=== PATIENT | male | born 1950 | race Caucasian/White ===

== ENCOUNTER 2016-12-23 22:43 | Emergency (ER) | payer OTHER, BC ==
[2016-12-23 22:55] VITALS: BP 103/60; PULSE 66; TEMP 98.8; BMI 29.8
--- NOTE | 2016-12-24 00:19 | PDOC ---
History of Present Illness - General Chief Complaint: Injury Stated Complaint: INJURY SATURDAY/SWELLING REDNESS TO ARM Time Seen by Provider: 12/23/16 22:49 - History of Present Illness Initial Comments: This 66-year-old man with a history of Asperger syndrome, hypertension, diabetes mellitus, anxiety/depression presents in the company of his sister with a history of falling at [place] [employer] 3 days ago. They were traveling from [place] here when he fell down an escalator. Patient sustained lacerations of the right forearm and fingers. [facility] and laceration of the forearm was sutured and finger injuries were dressed. Dressings are being changed by patient's sister and [id number]. Tonight, right forearm wound was examined by family friend (who is an RN) who became concerned that the area was inflamed, consistent with a soft tissue infection area patient states that the areas somewhat more painful than it was a few days ago. There is no history of fever/chills. No history of previous cellulitis/abscess; no history of MRSA or other resistant organisms colonization/infection Past History - Past Medical History Allergies/Adverse Reactions: Allergies Allergy/AdvReac Type Severity Reaction Status Date / Time No Known Allergies Allergy Verified 12/23/16 22:45 Home Medications: Ambulatory Orders Alprazolam [Xanax] 0.5 mg PO TID 12/24/16 Amiodarone HCl 200 mg PO DAILY 12/24/16 Apixaban [Eliquis] 5 mg PO BID 12/24/16 Atorvastatin Ca [Lipitor] 40 mg PO HS 12/24/16 Bupropion HCl [Bupropion Xl] 400 mg PO DAILY 12/24/16 Canagliflozin [Invokana] 300 mg PO DAILY 12/24/16 Clindamycin HCl 300 mg PO TID #20 capsule 12/24/16 Lansoprazole [Prevacid -] 15 mg PO DAILY 12/24/16 Metformin HCl [Glucophage] 500 mg PO BID 12/24/16 Metoprolol Succinate [Toprol Xl -] 25 mg PO BID 12/24/16 Quetiapine Fumarate [Seroquel] 50 tab PO HS 12/24/16 Tamsulosin HCl 0.4 mg PO HS 12/24/16 Venlafaxine HCl ER [Effexor Xr -] 300 mg PO DAILY 12/24/16 Diabetes: Yes Disorders: Yes (URINARY INCONTINENCE) HTN: Yes Other medical history: ANXIETY/DEPRESSION - Psycho/Social/Smoking Cessation Hx Anxiety: Yes Suicidal Ideation: No Smoking History: Never smoked Have you smoked in the past 12 months: No Information on smoking cessation initiated: No Hx Alcohol Use: No Drug/Substance Use Hx: No Substance Use Type: None Review of Systems - Review of Systems Able to Perform ROS?: Yes Comments:: 12 point review of systems is negative except for what is noted in the history of present illness *Physical Exam - Vital Signs Last Vital Signs Temp Pulse Resp BP Pulse Ox 98.8 F 66 16 103/60 97 12/23/16 22:47 12/23/16 22:47 12/23/16 22:47 12/23/16 22:47 12/23/16 22:47 - Physical Exam Comments: GENERAL:Adult male, alert and oriented 3, no acute distress Vital signs as noted HEAD: Normal with no signs of trauma. EXTREMITIES: Right upper extremityforearm: 4 cm laceration with intact suture closing. No purulent or other discharge noted No fluctuant area noted in proximity to laceration Distal 2 cm of the area distal to the laceration is erythematous, mildly edematous edematous/ tender NEUROLOGICAL: Cranial nerves II through XII grossly intact. Normal speech. No focal neurological deficits. MUSCULOSKELETAL: Back non-tender to palpation, no CVA tenderness SKIN: Warm, Dry, normal turgor, no rashes or lesions noted. Medical Decision Making - Medical Decision Making This 66-year-old man with a history of diabetes mellitus presents with sutured wound of the right forearm, sustained 3 days ago when he fell down an escalator , while in [place] [facility] prior to traveling here to attend his father's . Patient was evaluated in a hospital and wound cleansing/closure was performed in the ER there. Since arriving here, family friend (RN) examined wound and became concerned because of erythema/edema in the area and suggested evaluation in the emergency room. On exam, there is mild tenderness/edema and erythema of the distal third of the wound. Because of possibility of MRSA in this immunocompromised patient, clindamycin 300 mg 3 times a day will be prescribed for one week. The patient's wound is being dressed by his sister who will continue to do that. He already has an appointment with a wound care clinic in 48 hours. If there is any development of fever/chills, increasing pain/swelling/erythema prior to that, he should return here. *DC/Admit/Observation/Transfer Diagnosis at time of Disposition: Cellulitis of right forearm - Discharge Dispostion Disposition: HOME Condition at time of disposition: Stable - Prescriptions Prescriptions: Clindamycin HCl 300 mg PO TID #20 capsule - Patient Instructions Printed Discharge Instructions: DI for Cellulitis -- Adult Additional Instructions: Clindamycin 300 mg 3 times a day for the next 7 days Continue other medications as prescribed Return here if redness/swelling/pain worsens or fever/chills develop Follow-up tomorrow with wound care clinic as scheduled
[2016-12-24] MEDS ORDERED: CLINDAMYCIN HCL 300 MG CAPSULE PO ONE (00:39)
[2016-12-24] MEDS ORDERED: CLINDAMYCIN HCL 150 MG CAPSULE (FP) ONE (00:44)
== END 2016-12-24 00:49 | disposition home or self-care (01) ==
LOC: FER 22:43
DX: L03.113 Cellulitis of right upper limb (principal); F84.5 Asperger's syndrome; I10 Essential (primary) hypertension; E11.9 Type 2 diabetes mellitus without complications; F41.8 Other specified anxiety disorders
CPT/HCPCS: 99281-25